=== PATIENT | female | born 1955 | race Caucasian/White ===

== ENCOUNTER → 2020-03-06 | Outpatient (CLI) | payer MEDICARE, OTHER ==
[~2020-03-06] MED LIST: BENICAR40 MG PO; BYSTOLIC5 MG PO; DITROPAN XL10 MG PO; HYDROCHLOROTHIA25 MG PO; LEVOTHYROXINE25 MC1 PO; LIPITOR10 MG PO; TYLENOL SINUS1 EAC3 PO; ULTRAM50 MG PO; VITAMIN D350 MC3 PO
== END ==
LOC: MAMO 09:17
DX: Z12.31 Encounter for screening mammogram for malignant neoplasm of breast (principal)
CPT/HCPCS: 77063; 77067

== ENCOUNTER 2020-07-08 21:58 | Emergency (ER) | payer MEDICARE, OTHER ==
[2020-07-08 23:30] LABS: HEMOGLOBIN 15.2 gm/dl (12.3-15.3); RED BLOOD COUNT 4.69 M/UL (4.00-5.10); WHITE BLOOD COUNT 8.7 K/UL (4.5-11.0)
[2020-09-14] MEDS ORDERED: BYSTOLIC5 MG PO (10:59)
[2020-09-14] MEDS ORDERED: LIPITOR10 MG PO (10:59)
[2020-09-14] MEDS ORDERED: HYDROCHLOROTHIA25 MG PO (10:59)
[2020-09-14] MEDS ORDERED: ULTRAM50 MG PO (11:00)
[2020-09-14] MEDS ORDERED: DITROPAN XL10 MG PO (11:01)
[2020-09-14] MEDS ORDERED: BENICAR40 MG PO (11:01)
[2020-09-14] MEDS ORDERED: LEVOTHYROXINE25 MC1 PO (11:01)
[2020-09-14] MEDS ORDERED: VITAMIN D350 MC3 PO (11:02)
[2020-09-14] MEDS ORDERED: TYLENOL SINUS1 EAC3 PO (11:03)
== END 2020-07-09 03:09 | disposition home or self-care (01) ==
LOC: ER1 21:58
PROVIDERS: Physician Assistant Medical
DX: M25.561 Pain in right knee (principal); I10 Essential (primary) hypertension; Z88.8 Allergy status to other drugs, medicaments and biological substances; Z79.899 Other long term (current) drug therapy; M79.604 Pain in right leg
CPT/HCPCS: 29530; 73564; 80053; 85025; 85379; 85610; 99283

== ENCOUNTER → 2020-07-10 | Outpatient (CLI) | payer MEDICARE, OTHER | LOC: US 12:06 | DX: R22.41 Localized swelling, mass and lump, right lower limb (principal) | CPT/HCPCS: 93971 ==

== ENCOUNTER → 2020-07-19 | Outpatient (CLI) | payer MEDICARE, OTHER | LOC: KOH-I 12:31 | DX: M25.561 Pain in right knee (principal); M25.461 Effusion, right knee | CPT/HCPCS: 73721 ==

== ENCOUNTER → 2020-09-14 | Outpatient (CLI) | payer MEDICARE ==
[~2020-09-14] MED LIST changes: +FLONASE 0.05% N16 GM; +HYDROCODON-ACE1 EAC2 PO
[2020-09-14 11:04] LABS: HEMOGLOBIN 15.5 gm/dl (12.3-15.3); RED BLOOD COUNT 4.83 M/UL (4.00-5.10); WHITE BLOOD COUNT 5.3 K/UL (4.5-11.0)
== END ==
LOC: OPSV2 10:00
PROVIDERS: Orthopaedic Surgery
DX: Z01.818 Encounter for other preprocedural examination (principal); S83.206A Unspecified tear of unspecified meniscus, current injury, right knee, initial encounter
CPT/HCPCS: 36415; 80048; 85025; 93005

== ENCOUNTER → 2020-09-28 | Day surgery (SDC) | payer MEDICARE, OTHER | END | disposition home or self-care (01) | LOC: OR 07:28 | DX: S83.241A Other tear of medial meniscus, current injury, right knee, initial encounter (principal); M94.29 Chondromalacia, multiple sites; M17.12 Unilateral primary osteoarthritis, left knee; I10 Essential (primary) hypertension; E78.5 Hyperlipidemia, unspecified; N28.9 Disorder of kidney and ureter, unspecified; E07.9 Disorder of thyroid, unspecified; Z79.891 Long term (current) use of opiate analgesic; Z79.899 Other long term (current) drug therapy; Z88.8 Allergy status to other drugs, medicaments and biological substances; Z20.822 Contact with and (suspected) exposure to COVID-19 | CPT/HCPCS: J0171; J0690; J1100; J1170; J1885; J2001; J2250; J2405; J2704; J3010; J7120 ==

== ENCOUNTER → 2021-02-06 | Outpatient (CLI) | payer MEDICARE, OTHER | LOC: KOH-I 10:00 | DX: Z87.891 Personal history of nicotine dependence (principal) | CPT/HCPCS: 71271 ==

== ENCOUNTER → 2021-03-16 | Day surgery (SDC) | payer MEDICARE, OTHER | END | disposition home or self-care (01) | LOC: OR 06:12 | DX: Z12.11 Encounter for screening for malignant neoplasm of colon (principal); K57.30 Diverticulosis of large intestine without perforation or abscess without bleeding; Z86.010 Personal history of colon polyps; Z87.19 Personal history of other diseases of the digestive system; E78.5 Hyperlipidemia, unspecified; I10 Essential (primary) hypertension; E03.9 Hypothyroidism, unspecified; Z88.8 Allergy status to other drugs, medicaments and biological substances; Z87.891 Personal history of nicotine dependence; Z20.822 Contact with and (suspected) exposure to COVID-19 | CPT/HCPCS: J2704; J7030 ==

== ENCOUNTER → 2021-08-17 | Outpatient (CLI) | payer MEDICARE, OTHER | LOC: MAMO 14:37 | DX: Z12.31 Encounter for screening mammogram for malignant neoplasm of breast (principal) | CPT/HCPCS: 77063; 77067 ==